=== PATIENT | male | born 1965 | race Caucasian/White ===

== ENCOUNTER 2021-09-23 10:51 | Outpatient (CLI) | payer OTHER, SELFPAY ==
[2021-09-23 12:31] LABS: Chloride* 101 mmol/L (96-114); Potassium* 5.4 mmol/L (3.6-5.1); Sodium* 136 mmol/L (135-149)
[2021-09-23 12:33] LABS: Cholesterol* 233 mg/dL (90-199)
[2021-09-23 12:34] LABS: Blood Urea Nitrogen* 17 mg/dL (7-30); Calcium* 9.6 mg/dL (8.4-10.6); Carbon Dioxide* 31 mmol/L (20-32); Creatinine* 0.8 mg/dL (0.5-1.5); Estimated Glomerular Filt Rate 105 ml/min; Glucose* 114 mg/dL (60-115); HDL Cholesterol* 86 mg/dL (>=40); LDL Cholesterol Calculated 128 mg/dL (<100); Triglycerides* 94 mg/dL (40-149)
[2021-09-23 12:59] LABS: PSA Screen* 0.97 ng/mL (0.10-4.00)
== END 2021-09-23 10:52 | disposition home or self-care (01) ==
PROVIDERS: PCP Family Medicine; Visit Provider Family Medicine
DX: Z00.00 Encounter for general adult medical examination without abnormal findings (principal); I10 Essential (primary) hypertension; G45.9 Transient cerebral ischemic attack, unspecified; Z12.5 Encounter for screening for malignant neoplasm of prostate
CPT/HCPCS: 80048; 80061; 84153

== ENCOUNTER 2022-10-10 08:17 | Outpatient (CLI) | payer OTHER, SELFPAY | END 2022-10-10 08:18 | disposition home or self-care (01) | PROVIDERS: PCP Family Medicine; Visit Provider Family Medicine | DX: Z00.00 Encounter for general adult medical examination without abnormal findings (principal); I10 Essential (primary) hypertension; Z12.5 Encounter for screening for malignant neoplasm of prostate; Z13.6 Encounter for screening for cardiovascular disorders | CPT/HCPCS: 80048; 80061; 84153 ==

== ENCOUNTER 2023-11-13 09:13 | Outpatient (CLI) | payer OTHER, SELFPAY | END 2023-11-13 09:14 | disposition home or self-care (01) | PROVIDERS: PCP Family Medicine; Visit Provider Family Medicine | DX: I10 Essential (primary) hypertension (principal); Z12.5 Encounter for screening for malignant neoplasm of prostate | CPT/HCPCS: 80048; G0103 ==

== ENCOUNTER 2024-11-14 09:00 | Outpatient (CLI) | payer OTHER, SELFPAY | END 2024-11-14 09:01 | disposition home or self-care (01) | PROVIDERS: PCP Family Medicine; Visit Provider Family Medicine | DX: I10 Essential (primary) hypertension (principal); Z12.5 Encounter for screening for malignant neoplasm of prostate; Z13.6 Encounter for screening for cardiovascular disorders | CPT/HCPCS: 80048; 80061; G0103 ==